=== PATIENT | male | born 1940 | race American Indian/Alaskan Native ===

== ENCOUNTER 2018-11-23 14:49 | Inpatient (IN) | payer MEDICARE ==
[2018-11-23] MEDS ORDERED: NACL 0.9% 1000 ML 1,000 ML ONE (15:30)
[2018-11-23 15:34] LABS: Basophils % (Auto) 0.4 % (0.0-1.8); Eosinophils % (Auto) 0.3 % (0.0-4.3); Hematocrit 48.8 % (35.5-45.6); Hemoglobin 16.1 gm/dl (11.8-15.2); Lymphocytes # (Auto) 0.9 K/mm3 (1.2-5.4); Lymphocytes % (Auto) 7.2 % (13.4-35.0); Mean Corpuscular HGB Conc 33 % (32-34); Mean Corpuscular Volume 87 fl (84-94); Monocytes # (Auto) 0.8 K/mm3 (0.0-0.8); Monocytes % (Auto) 6.6 % (0.0-7.3); Platelet Count 216 K/mm3 (140-440); Red Blood Count 5.63 M/mm3 (3.65-5.03); Red Cell Distribution Width 16.4 % (13.2-15.2)
[2018-11-23 16:08] LABS: Bacteria,Urine 1+ /HPF (Negative); Bilirubin,Urine NEG (Negative); Blood,Urine LG (Negative); Color,Urine Yellow (Yellow); Mucus,Urine 3+ /HPF; Urobilinogen,Urine < 2.0 mg/dL (<2.0)
[2018-11-23] MEDS ORDERED: NACL 0.9% 1000 ML 1,000 ML IV ONE (16:08)
[2018-11-23 16:10] LABS: INR 1.12 (0.87-1.13)
[2018-11-23 16:11] LABS: Partial Thromboplastin Time 28.9 Sec. (24.2-36.6)
--- NOTE | 2018-11-23 16:15 | XRay Report ---
CHEST 1 VIEW 1556 INDICATION / CLINICAL INFORMATION: ams. COMPARISON: None available. FINDINGS: SUPPORT DEVICES: None HEART / MEDIASTINUM: No significant abnormality. LUNGS / PLEURA: Poor degree of inspiration is seen. No areas of consolidation are noted. No pneumotho rax. ADDITIONAL FINDINGS: No significant additional findings. IMPRESSION: No significant acute abnormality Signer Name: Luis Mcduffie MD Signed: 11/23/2018 4:10 PM Workstation Name: [id number]
--- NOTE | 2018-11-23 17:26 | Cat Scan Report ---
CT BRAIN: 11/23/2018 INDICATION / CLINICAL INFORMATION: AMS, expressive aphasia. COMPARISON: None available. FINDINGS: BRAIN/INTRACRANIAL STRUCTURES: Unenhanced CT images of the brain demonstrate evidence of acute ischem ic change involving portions of the left frontal cortex, subcortical white matter, and corpus callosu m. Patchy areas of hypoattenuation involving cortical and subcortical structures, including extending down to the left subfrontal region and into the left frontal cortex, typically associated with speec h function. This would presumably represent distribution of portions of the left anterior cerebral ar melissa,. There is no evidence of hemorrhage. There is no significant mass effect. Underlying age-related atrophic changes are present. Some chronic white matter hypoattenuation is pre sent in the cerebral hemispheric white matter bilaterally. There are no abnormal extra-axial fluid collections. Atherosclerotic vascular calcifications are noted in the distal internal carotid arteries bilaterally . EXTRACRANIAL STRUCTURES: Unremarkable. IMPRESSION: Cortical and subcortical ischemic change in the left frontal lobe as described above. No evidence of hemorrhage. All CT scans at this location are performed using dose reduction to ALARA by means of automated expos ure control. Signer Name: Vinny Jefferson MD Signed: 11/23/2018 5:22 PM Workstation Name: [id number]
--- NOTE | 2018-11-23 17:33 | Emergency Department Report ---
ED Altered Mental Status HPI - General Chief Complaint: Altered Mental Status Stated Complaint: AMS Time Seen by Provider: 11/23/18 15:29 Source: EMS Mode of arrival: Stretcher Limitations: No Limitations - History of Present Illness Initial Comments: 77-year-old male presents to ED with altered mental status. Son states last known normal time was 3 days ago. Son went to patient's home today to check on him, states patient did not answer the door states he had to break into patient's home. Son states he found patient laying on the floor, smelling of urine. Son states patient has been awake and alert but unable to speak to him. Patient is currently moving all extremities. Son reports history of hypertension. No previous history of stroke. MD Complaint: altered mental status -: unknown Severity: severe Consistency of Symptoms: constant Context: unknown - Related Data Allergies Allergy/AdvReac Type Severity Reaction Status Date / Time Unable to Assess Allergy Unverified 11/23/18 14:59 ED Review of Systems ROS: Stated complaint: AMS Other details as noted in HPI Comment: Unobtainable due to pts medical conditions ED Past Medical Hx - Past Medical History Hx Hypertension: Yes - Social History Smoking Status: Unknown if ever smoked ED Physical Exam - General Limitations: No Limitations General appearance: alert - Head Head exam: Present: atraumatic, normocephalic - Eye Eye exam: Present: normal appearance, PERRL, EOMI - ENT ENT exam: Present: mucous membranes moist - Neck Neck exam: Present: normal inspection - Respiratory Respiratory exam: Present: normal lung sounds bilaterally. Absent: respiratory distress - Cardiovascular Cardiovascular Exam: Present: normal rhythm, tachycardia - GI/Abdominal GI/Abdominal exam: Present: soft. Absent: distended, tenderness - Extremities Exam Extremities exam: Present: normal inspection - Neurological Exam Neurological exam: Present: alert, other (strength 5/5 in all extremities, sensation intact, no facial droop, aphasia present, pt nonverbal). Absent: CN II-XII intact - Psychiatric Psychiatric exam: Present: normal affect, normal mood - Skin Skin exam: Present: warm, dry, intact, normal color. Absent: rash - Assessment Assessment Interval: Baseline - Level of Consciousness 1a. Level of Consciousness: alert/keenly responsive - LOC Questions 1b. LOC Questions: aphasic - LOC Command 1c. LOC Commands: performs tasks correctly - Best Gaze 2. Best Gaze: normal - Visual 3. Visual: no visual loss - Facial Palsy 4. Facial Palsy: normal symmetrical movement - Motor Arm 5a. Motor Arm Left: no drift 5b. Motor Arm Right: no drift - Motor Leg 6a. Motor Leg Left: no drift 6b. Motor Leg Right: no drift - Limb Ataxia 7. Limb Ataxia: absent - Sensory 8. Sensory: normal - Best Language 9. Best Language: mute/global aphasia - Dysarthria 10. Dysarthria: mute/anarrthric - Extinction and Inattention 11. Extinction/Inattention: no abnormality - Scoring Total Score: 7 Stroke Severity: Moderate Stroke ED Course Vital Signs 11/23/18 11/23/18 11/23/18 14:55 15:45 15:53 Temperature 97.7 F Pulse Rate 135 H 119 H Respiratory 19 22 Rate Blood Pressure 195/115 Blood Pressure 185/125 [Right] O2 Sat by Pulse 97 96 Oximetry 11/23/18 11/23/18 11/23/18 16:47 17:00 17:45 Temperature Pulse Rate 108 H 109 H 109 H Respiratory 22 22 19 Rate Blood Pressure 195/115 177/101 184/105 Blood Pressure [Right] O2 Sat by Pulse 96 95 95 Oximetry 11/23/18 11/23/18 11/23/18 18:00 18:15 18:30 Temperature Pulse Rate 113 H 107 H 110 H Respiratory 24 22 25 H Rate Blood Pressure 180/100 180/100 168/100 Blood Pressure [Right] O2 Sat by Pulse 95 96 96 Oximetry 11/23/18 18:45 Temperature Pulse Rate 113 H Respiratory 24 Rate Blood Pressure 168/100 Blood Pressure [Right] O2 Sat by Pulse 96 Oximetry - Lab Data Result diagrams: 11/23/18 15:22 11/23/18 18:00 Lab Results 11/23/18 11/23/18 11/23/18 Range/Units 15:22 15:28 15:50 WBC 12.2 H (4.5-11.0) K/mm3 RBC 5.63 H (3.65-5.03) M/mm3 Hgb 16.1 H (11.8-15.2) gm/dl Hct 48.8 H (35.5-45.6) % MCV 87 (84-94) fl MCH 29 (28-32) pg MCHC 33 (32-34) % RDW 16.4 H (13.2-15.2) % Plt Count 216 (140-440) K/mm3 Lymph % (Auto) 7.2 L (13.4-35.0) % [place] % (Auto) 6.6 (0.0-7.3) % Eos % (Auto) 0.3 (0.0-4.3) % Baso % (Auto) 0.4 (0.0-1.8) % Lymph # 0.9 L (1.2-5.4) K/mm3 [place] # 0.8 (0.0-0.8) K/mm3 Eos # 0.0 (0.0-0.4) K/mm3 Baso # 0.0 (0.0-0.1) K/mm3 Seg Neutrophils % 85.5 H (40.0-70.0) % Seg Neutrophils # 10.5 H (1.8-7.7) K/mm3 PT (12.2-14.9) Sec. INR (0.87-1.13) APTT (24.2-36.6) Sec. Sodium TNR Potassium TNR Chloride TNR Carbon Dioxide TNR Anion Gap TNR BUN TNR Creatinine TNR Estimated GFR TNR BUN/Creatinine Ratio TNR Glucose TNR POC Glucose 110 H (70-105) Calcium TNR Troponin T (0.00-0.029) ng/mL Urine Color (Yellow) Urine Turbidity (Clear) Urine pH (5.0-7.0) Ur Specific [place] (1.003-1.030) Urine Protein (Negative) mg/dL Urine Glucose (UA) (Negative) mg/dL Urine Ketones (Negative) mg/dL Urine Blood (Negative) Urine Nitrite (Negative) Urine Bilirubin (Negative) Urine Urobilinogen (<2.0) mg/dL Ur Leukocyte Esterase (Negative) Urine WBC (Auto) (0.0-6.0) /HPF Urine RBC (Auto) (0.0-6.0) /HPF U Epithel Cells (Auto) (0-13.0) /HPF Urine Bacteria (Auto) (Negative) /HPF Urine Mucus /HPF 11/23/18 11/23/18 11/23/18 Range/Units 15:50 15:50 15:52 WBC (4.5-11.0) K/mm3 RBC (3.65-5.03) M/mm3 Hgb (11.8-15.2) gm/dl Hct (35.5-45.6) % MCV (84-94) fl MCH (28-32) pg MCHC (32-34) % RDW (13.2-15.2) % Plt Count (140-440) K/mm3 Lymph % (Auto) (13.4-35.0) % [place] % (Auto) (0.0-7.3) % Eos % (Auto) (0.0-4.3) % Baso % (Auto) (0.0-1.8) % Lymph # (1.2-5.4) K/mm3 [place] # (0.0-0.8) K/mm3 Eos # (0.0-0.4) K/mm3 Baso # (0.0-0.1) K/mm3 Seg Neutrophils % (40.0-70.0) % Seg Neutrophils # (1.8-7.7) K/mm3 PT 14.1 (12.2-14.9) Sec. INR 1.12 (0.87-1.13) APTT 28.9 (24.2-36.6) Sec. Sodium Potassium Chloride Carbon Dioxide Anion Gap BUN Creatinine Estimated GFR BUN/Creatinine Ratio Glucose POC Glucose (70-105) Calcium Troponin T < 0.010 (0.00-0.029) ng/mL Urine Color Yellow (Yellow) Urine Turbidity Slightly-cloudy (Clear) Urine pH 5.0 (5.0-7.0) Ur Specific [place] 1.031 H (1.003-1.030) Urine Protein 100 mg/dl (Negative) mg/dL Urine Glucose (UA) Neg (Negative) mg/dL Urine Ketones 80 (Negative) mg/dL Urine Blood Lg (Negative) Urine Nitrite Neg (Negative) Urine Bilirubin Neg (Negative) Urine Urobilinogen < 2.0 (<2.0) mg/dL Ur Leukocyte Esterase Neg (Negative) Urine WBC (Auto) 4.0 (0.0-6.0) /HPF Urine RBC (Auto) 90.0 (0.0-6.0) /HPF U Epithel Cells (Auto) < 1.0 (0-13.0) /HPF Urine Bacteria (Auto) 1+ (Negative) /HPF Urine Mucus 3+ /HPF 11/23/18 Range/Units 18:00 WBC (4.5-11.0) K/mm3 RBC (3.65-5.03) M/mm3 Hgb (11.8-15.2) gm/dl Hct (35.5-45.6) % MCV (84-94) fl MCH (28-32) pg MCHC (32-34) % RDW (13.2-15.2) % Plt Count (140-440) K/mm3 Lymph % (Auto) (13.4-35.0) % [place] % (Auto) (0.0-7.3) % Eos % (Auto) (0.0-4.3) % Baso % (Auto) (0.0-1.8) % Lymph # (1.2-5.4) K/mm3 [place] # (0.0-0.8) K/mm3 Eos # (0.0-0.4) K/mm3 Baso # (0.0-0.1) K/mm3 Seg Neutrophils % (40.0-70.0) % Seg Neutrophils # (1.8-7.7) K/mm3 PT (12.2-14.9) Sec. INR (0.87-1.13) APTT (24.2-36.6) Sec. Sodium 145 Potassium 4.2 Chloride 104.8 Carbon Dioxide 26 Anion Gap 18 BUN 19 Creatinine 0.9 Estimated GFR > 60 BUN/Creatinine Ratio 21 Glucose 120 H POC Glucose (70-105) Calcium 9.5 Troponin T (0.00-0.029) ng/mL Urine Color (Yellow) Urine Turbidity (Clear) Urine pH (5.0-7.0) Ur Specific [place] (1.003-1.030) Urine Protein (Negative) mg/dL Urine Glucose (UA) (Negative) mg/dL Urine Ketones (Negative) mg/dL Urine Blood (Negative) Urine Nitrite (Negative) Urine Bilirubin (Negative) Urine Urobilinogen (<2.0) mg/dL Ur Leukocyte Esterase (Negative) Urine WBC (Auto) (0.0-6.0) /HPF Urine RBC (Auto) (0.0-6.0) /HPF U Epithel Cells (Auto) (0-13.0) /HPF Urine Bacteria (Auto) (Negative) /HPF Urine Mucus /HPF - EKG Data -: EKG Interpreted by Me EKG shows normal: sinus rhythm Rate: tachycardia (rate 137) Interpretation: LVH, other (RBBB, LAFB) - Radiology Data Radiology results: report reviewed, image reviewed - Medical Decision Making 77-year-old male with history of hypertension presents here with altered mental status. Patient last known well 3 days ago according to family. Patient was found, laying on the floor, soaked with urine. On exam patient is hypertensive, tachycardic, afebrile. Patient is alert, follows commands. Patient does not appear to have facial droop, moves all extremities well. Patient is, however, aphasic and mute. CT head shows acute ischemic change involving the left frontal cortex, no hemorrhage or mass effect noted. Labs are unremarkable, chest x-ray normal. Patient initially quite tachycardic into the 130s, IV fluids given, this has improved to the 100s. This could possibly be due to dehydration and this patient was on the floor, and it is unclear how long he had been there. 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 Troponin is normal. Patient is slightly hypertensive, however we will allow some hypertension due to his acute stroke. Patient is not a candidate for TPA due to the CT findings, and last known well time of 3 days ago. Pt admitted to hospitalist for further management. - Differential Diagnosis CVA, infection, intoxication Critical Care Time: Yes Critical care time in (mins) excluding proc time.: 35 Critical care attestation.: If time is entered above; I have spent that time in minutes in the direct care of this critically ill patient, excluding procedure time. Critical Care Time: 35 minutes ED Disposition Clinical Impression: CVA (cerebral vascular accident) Disposition: DC-[id number] OP ADMIT IP TO THIS HOSP Is pt being admited?: Yes Condition: Stable Referrals: PRIMARY CARE, [Primary Care Provider] - 3-5 Days Time of Disposition: 17:37
[2018-11-23 17:58] LABS: BUN/Creatinine Ratio TNR; Blood Urea Nitrogen TNR mg/dL (9-20); Calcium TNR mg/dL (8.4-10.2); Hemolysis Index TNR
[2018-11-23 18:30] LABS: BUN/Creatinine Ratio 21; Blood Urea Nitrogen 19 mg/dL (9-20); Calcium 9.5 mg/dL (8.4-10.2); Hemolysis Index 14
--- NOTE | 2018-11-23 18:42 | History and Physical Report ---
History of Present Illness Chief complaint: I found him lying on the floor History of present illness: 77 YO Male with HTN presents to ED for evaluation. Pt is dysarthric and unable to speak clearly and provide history. Pt history provided by son who is at bedside during exam and interview. As per son, the patient was in his usual state of health 3 days ago. Pt was not heard from over the past 3 days so the son went to his home to check on him. Pt did not answer the door, so the son broke into the home and found the patient lying on the floor, unable to speak, and smelling of urine. EMS notified, and upon arrival the patient was found to have a neurologic deficit. A code stroke was called and the patient was t ransported to [facility]. Pt seen and evaluated in ED and found to have symptoms consistent with CVA, Dysarthria, as well as Encephalopathy. Pt admitted to telemetry and initiated on CVA protocol. Pt is outside therapeutic window for TPA. Neurology consulted in ED. No further history obtainable. No prior a dmission for review. No medication listed for reconciliation at time of admission. Past History Past Medical History: hypertension Past Surgical History: No surgical history, Other (reviewed) Social history: single, Lives alone. denies: smoking, alcohol abuse, prescription drug abuse Family history: hypertension Medications and Allergies Allergies Allergy/AdvReac Type Severity Reaction Status Date / Time No Known Allergies Allergy Unverified 11/23/18 20:13 Home Medications Medication Instructions Recorded Confirmed Last Taken Type Unobtainable 11/23/18 11/23/18 Unknown History Review of Systems ROS unobtainable: due to mental status Exam - Constitutional Vitals: Temp Pulse Resp BP Pulse Ox 97.7 F 109 H 19 184/105 95 11/23/18 15:53 11/23/18 17:45 11/23/18 17:45 11/23/18 17:45 11/23/18 17:45 General appearance: Present: mild distress - EENT Eyes: Present: PERRL ENT: hearing intact, clear oral mucosa - Neck Neck: Present: supple, normal ROM - Respiratory Respiratory effort: normal Respiratory: bilateral: CTA - Cardiovascular Heart Sounds: Present: S1 & S2. Absent: rub, click - Extremities Extremities: pulses symmetrical, No edema Peripheral Pulses: within normal limits - Musculoskeletal Musculoskeletal: generalized weakness - Psychiatric Psychiatric: no memory intact, other (nonverbal with dysarthria) - Neurologic Neurologic: no CNII-XII intact, no focal deficits, moves all extremities, no gait normal Results - Labs CBC & Chem 7: 11/23/18 15:22 11/23/18 18:00 Labs: Abnormal lab results 11/23/18 11/23/18 11/23/18 Range/Units 15:22 15:28 15:52 WBC 12.2 H (4.5-11.0) K/mm3 RBC 5.63 H (3.65-5.03) M/mm3 Hgb 16.1 H (11.8-15.2) gm/dl Hct 48.8 H (35.5-45.6) % RDW 16.4 H (13.2-15.2) % Lymph % (Auto) 7.2 L (13.4-35.0) % Lymph # 0.9 L (1.2-5.4) K/mm3 Seg Neutrophils % 85.5 H (40.0-70.0) % Seg Neutrophils # 10.5 H (1.8-7.7) K/mm3 Glucose (75-100) mg/dL POC Glucose 110 H (70-105) Ur Specific [place] 1.031 H (1.003-1.030) 11/23/18 Range/Units 18:00 WBC (4.5-11.0) K/mm3 RBC (3.65-5.03) M/mm3 Hgb (11.8-15.2) gm/dl Hct (35.5-45.6) % RDW (13.2-15.2) % Lymph % (Auto) (13.4-35.0) % Lymph # (1.2-5.4) K/mm3 Seg Neutrophils % (40.0-70.0) % Seg Neutrophils # (1.8-7.7) K/mm3 Glucose 120 H (75-100) mg/dL POC Glucose (70-105) Ur Specific [place] (1.003-1.030) Assessment and Plan - Patient Problems (1) CVA (cerebral vascular accident) Current Visit: Yes Status: Acute Qualifiers: Precerebral and cerebral artery: anterior cerebral artery Laterality of affected vessel: left Plan to address problem: Stroke protocol: Admit to telemetry, CT Head, MRI Brain, MRA Brain, Echo, Car otid doppler, Echo, PT/OT/Speech Therapy, lipid panel, statin therapy, neurology consulted, Case management consulted for D/C planning/Rehab placement. (2) Encephalopathy Current Visit: Yes Status: Acute Plan to address problem: CT Head, neuro checks, (3) HTN (hypertension) Current Visit: Yes Status: Acute Qualifiers: Hypertension type: essential hypertension Qualified Code(s): I10 - Essential (primary) hypertension Plan to address problem: Permissive hypertension overnight, monitor bp q shift, Goal systolic overnight between 160-180. (4) Dysarthria due to acute stroke Current Visit: Yes Status: Acute Plan to address problem: PT/OT/Speech therapy, aspiration precautions. (5) DVT prophylaxis Current Visit: Yes Status: Acute Plan to address problem: SCD to BLE while in bed, prophylactic lovenox
[2018-11-23] MEDS ORDERED: MILK OF MAGNESIA PO PRN (18:43)
[2018-11-23] MEDS ORDERED: PROVENTIL IH PRN (18:43)
[2018-11-23] MEDS ORDERED: SODIUM CHLORIDE FLUSH SYRINGE 10 ML IV PRN (18:43)
[2018-11-23] MEDS ORDERED: ZOFRAN IV PRN (18:43)
[2018-11-23] MEDS ORDERED: TYLENOL PO PRN (18:43)
[2018-11-23] MEDS ORDERED: PHENERGAN PR PRN (18:43)
[2018-11-23] MEDS ORDERED: DULCOLAX PR PRN (18:43)
[2018-11-23] MEDS ORDERED: REGLAN PO PRN (18:43)
[2018-11-23] MEDS ORDERED: ASPIRIN PO ONE (18:54)
[2018-11-23] MEDS ORDERED: LOVENOX SUB-Q SCH (22:00)
[2018-11-24 05:38] LABS: Chol/HDL Ratio 4.97 %
[2018-11-24] MEDS ORDERED: D50W (25GM) Syringe IV ONE (06:09)
[2018-11-24] MEDS ORDERED: ADRENALIN ONE ×2 (06:30→07:15)
--- NOTE | 2018-11-24 06:59 | Event Note ---
<TONI SANCHEZ - Last Filed: 11/24/18 07:12> Date: 11/24/18 Code Met for change in mental status. Stat CT head ordered Change to Code Blue in CT. Pt had seizure followed by loss of pulse. Chest compressions started and epi 1 given with regain of pulse. 4 attempts at intubation were made before ETT was establish with good lung sounds. Placement confirmed by CXR. 0647 - started on dopamine gtt for hypotension. Transferred to CT table for stat CT heat. 0702 Code Blue <SARAH TRONCOSO - Last Filed: 11/24/18 21:42> Patient had a seizure while in CT. After the Ct he lost a pulse. Rusistation efforts started, initial rhythm PEA, ACLS protocol started, refer to code sheet for details, keppra 1 g will be given Code turned over to Dr Cohen at 07:11
--- NOTE | 2018-11-24 07:02 | Event Note ---
Date: 11/24/18 Pt was a code met with altered mental status and then became a cold blue in the CAT scanner. Pt apparently had a seizure. Dr. Juarez and Dr. Donnelly at the bedside initiated ACLS protocol and attempting endotracheal intubation. There were several unsuccessful intubation attempt prior to my arrival. I was asked to assist with intubation. I was able to intubate with assistance of a glidescope. A 7.5 ET tube was visualized going through the cords with CO2 color change. Unfortunately we were unable to inflate the balloon and it likely was p unctured during previous intubation attempts. ET tube was then exchange over bougie with a 8.0 ET tube. Once again there was positive CO2 color change with equal breath sounds bilaterally and no breath sounds over the epigastrium. Portable CXR reveals adequate ET tube position official report pending. - Intubation Time Out Performed: Yes Sedative: Etomidate Mg Given: 20 Paralytic: Succinylcholine Mg Given: 100 Laryngoscope: other (glidescope) Size: 4 ET Tube Size: 7.5 Tube Secured Depth (cm): 24 Tube Secured Location: lips Tube Placement Confirmation: visualized tube passing t, equal breath sounds bilat, no breath sounds over epi, confirmation by capnometr Patient Tolerated Procedure: well Intubation Complications: difficult intubation
--- NOTE | 2018-11-24 07:08 | Event Note ---
Date: 11/24/18 I responded to a blue code at CT scan suite. Patient had a respiratory arrest after seizure. Dr. Marsha Juarez is present and was leading the code. I presented to help intubate the patient. Using RSI, patient given 20 mg of etomidate and 100 mg succinylcholine. Three attempts to intubate were unsuccessful. Patient then immediately intubated by my colleage Dr Redmond using Glidoscope. During these attempts patient oxygenation maintained into mid 90%..
[2018-11-24] MEDS ORDERED: INTROPIN DRIP 800 MG/D5W 250 ML IV ONE (07:15)
--- NOTE | 2018-11-24 07:15 | Cat Scan Report ---
CT HEAD WITHOUT CONTRAST INDICATION : Hypoxia. Possible CVA. TECHNIQUE: Axial, coronal and sagittal CT imaging was performed from the skull apex through the skul l base without contrast. All CT scans at this location are performed using CT dose reduction for ALA RA by means of automated exposure control. COMPARISON: CT of the head without contrast from 11/23/2018. FINDINGS: PARENCHYMA: The previously described areas of ischemia along the left frontal lobe have not signific antly changed. No associated hemorrhage is identified. There is stable atrophy. Additional scattered areas of low-attenuation along the periventricular/subcortical white matter likely represent chronic microvascular ischemic changes. VENTRICLES: Prominent secondary to atrophy. No acute findings. SOFT TISSUES: Soft tissues including the orbits appear normal. BONES: No acute osseous abnormality. SINUSES: No significant abnormality. ADDITIONAL FINDINGS: None. IMPRESSION: Stable areas of ischemia along the left frontal lobe without associated hemorrhage or other new acute findings. Signer Name: Javier Hong MD Signed: 11/24/2018 7:11 AM Workstation Name: [id number]
[2018-11-24] MEDS ORDERED: LEVOPHED DRIP 4 MG/NS 250 ML 4 MG/250 ML BAG IV ONE (07:27)
[2018-11-24] MEDS ORDERED: KEPPRA 1,000 MG in D5W 100 ML IV ONE (08:00)
--- NOTE | 2018-11-24 08:35 | XRay Report ---
CHEST 1 VIEW 11/24/2018 6:44 AM INDICATION / CLINICAL INFORMATION: ET placement. COMPARISON: Chest x-ray on 11/23/2018. FINDINGS: SUPPORT DEVICES: ET tube has been placed with the tip projecting about 3 cm above the [place]. HEART / MEDIASTINUM: Stable. LUNGS / PLEURA: No significant pulmonary or pleural abnormality. No pneumothorax. ADDITIONAL FINDINGS: There is moderate gaseous distention of the stomach. IMPRESSION: 1. ET tube tip projects about 3 cm above the [place]. 2. Interval development of moderate gaseous distention of the stomach in the upper abdomen. Signer Name: Solomon Fierro MD Signed: 11/24/2018 8:31 AM Workstation Name: [id number]
[2018-11-24] MEDS ORDERED: INTROPIN DRIP 800 MG/D5W 250 ML 800 MG/250 ML BAG IV SCH (09:00)
[2018-11-24] MEDS ORDERED: LEVOPHED DRIP 4 MG/NS 250 ML 4 MG/250 ML BAG IV SCH (09:00)
[2018-11-24] MEDS ORDERED: ASPIRIN PO SCH (10:00)
[2018-11-24] MEDS ORDERED: PEPCID IV SCH (10:00)
[2018-11-24 11:46] VITALS: BP 139/121
[2018-11-24] MEDS ORDERED: QUELICIN ONE (14:46)
[2018-11-24] MEDS ORDERED: AMIDATE IV ONE (14:46)
[2018-11-24] MEDS ORDERED: ZEMURON IV ONE (14:46)
== END 2018-11-24 12:45 | DRG 208 ==
LOC: ED 14:49 → UNDOADMIN 18:43 → 4A 18:43 → CC1 11-24 07:49
PROVIDERS: ADMIT Internal Medicine; ATTEND Internal Medicine
PROC: 5A1935Z Respiratory Ventilation, Less than 24 Consecutive Hours (ICD-10-PCS; principal; 2018-11-24)
PROC: 0BH17EZ Insertion of Endotracheal Airway into Trachea, Via Natural or Artificial Opening (ICD-10-PCS; 2018-11-24)
DX: J96.01 Acute respiratory failure with hypoxia (principal); I63.9 Cerebral infarction, unspecified; G93.41 Metabolic encephalopathy; I95.9 Hypotension, unspecified; R47.1 Dysarthria and anarthria; I10 Essential (primary) hypertension; Z82.49 Family history of ischemic heart disease and other diseases of the circulatory system
CPT/HCPCS: 36415; 70450; 71045; 80048; 80061; 81001; 82962; 84484; 85025; 85610; 85730; 93005; 93010; 94002; 94003; 96360; 96361; G0378; A9270-GY; J0171; J0330; J1265; J1650; J1953; J7030